=== PATIENT | female | born 1980 | race Caucasian/White ===

== ENCOUNTER 2016-10-29 18:17 | Emergency (ER) | payer OTHER ==
[~2016-10-29] VITALS: Ht 162.6 cm; Wt 79.2 kg
[~2016-10-29 18:17] MED LIST: AUG875 PO; FER325 PO; KETO10TA PO; OMEP40CA6 PO
[2016-10-29 18:31] VITALS: Ht 162.6 cm; Wt 79.2 kg
[2016-10-29] MEDS ORDERED: SOD CHLORIDE 0.9% 1,000 ML IV STA (20:02)
[2016-10-29 20:41] LABS: ADD UMIC YES; URINE BILIRUBIN (Dip) NEGATIVE (NEGATIVE); URINE BLOOD (Dip) 3+ (NEGATIVE); URINE GLUCOSE (Dip) NEGATIVE (NEGATIVE); URINE KETONES (Dip) 40 (NEGATIVE); URINE LEUKOCYTE ESTERASE (Dip) TRACE (NEGATIVE); URINE NITRITE (Dip) NEGATIVE (NEGATIVE); URINE TOTAL PROTEIN (Dip) 4+ (NEGATIVE); URINE UROBILINOGEN (Dip) 1.0 E.U./dL (0.1-1.0)
[2016-10-29 20:45] LABS: URINE COLOR RED (YELLOW)
[2016-10-29 20:46] LABS: SQUAMOUS EPITHELIAL CELL,UR MODERATE; URINE RBCS >200 /HPF (0)
[2016-10-29 20:55] LABS: ADD SCAN DIFF NO
[2016-10-29 21:02] LABS: BASOPHILS % 0.3 % (0.0-2.0); EOSINOPHILS % 0.1 % (0.0-7.0); HEMATOCRIT 28.7 % (37.0-47.0); HEMOGLOBIN 8.6 g/dl (12.0-16.0); LYMPHOCYTES # 1.7 10^3/ul (0.8-2.9); LYMPHOCYTES % 11.7 % (15.0-51.0); MEAN CORPUSCULAR HEMOGLOBIN 22.1 pg (29.0-33.0); MEAN CORPUSCULAR VOLUME 73.6 fl (82.0-101.0); MEAN PLATELET VOLUME 10.6 fl (7.4-10.4); MONOCYTE # 0.5 10^3/ul (0.3-0.9); MONOCYTES % 3.1 % (0.0-11.0); NEUTROPHIL # 12.3 10^3/ul (1.6-7.5); NEUTROPHILS % 84.4 % (39.0-77.0); PLATELET COUNT 372 10^3/UL (140-415); RED CELL DISTRIBUTION WIDTH 16.4 % (11.5-14.5); WHITE BLOOD COUNT 14.6 10^3/ul (4.8-10.8)
--- NOTE | 2016-10-29 21:30 | RADRPT ---
AMENDMENT: 10/29/2016 9:48:22 PM David Pike telephone conversation takes place with the patient's emergency room Health Care provider, Gela corrales, at 21:46 and additional history is made available in that the patient has had a positive test and has witnessed products of conception passing from her vagina. Therefore, the ex amination is consistent with a recent miscarriage, the endometrium heterogeneity related to small re tained blood clots as there is no hypervascular blood flow on Doppler interrogation to suggest retai buzz products of conception. PROCEDURE: US Pelvis. CLINICAL INDICATION: Vaginal bleeding TECHNIQUE: Multiple sonographic images of the pelvis were obtained utilizing a transabdominal and endovaginal technique. The images were reviewed on a PACS workstation. COMPARISON: None available FINDINGS: Uterus: Diffusely enlarged but normal in contour no evidence of masses. Size is estimated at 16.8 x 9.5 x 7.2 cm. Cervix: No abnormalities of significance are seen. Endometrium: Heterogeneous in echotexture, prominent thickness; 12 mm. No increased vascularity on Doppler interrogation is present. Findings may be related to the patients phase of menstruation. Right ovary / adnexa: The ovary is not visualized. There is no evidence of adnexal mass. Left ovary/adnexa: Normal in size estimated at 2.8 x 1.7 x 1.7 cm. No evidence for solid masses, no rmal blood flow on Doppler interrogation. Cul-de-sac: No evidence of free fluid. RPTAT:HJJR IMPRESSION: 1. Enlarged uterus without evidence of myometrial mass. 2. Heterogeneous echotexture to the endometrium which is measured at 12 mm but has no increased Dop pler blood flow, findings likely related to the patients phase of menstruation given her provided ag e of 36 years. Less likely possibilities include submucosal leiomyoma and endometrial polyp. 3. Sonographically normal left ovary; nonvisualization of the right ovary. Physician Magno Date Time Electronically viewed and signed by Physician Magno on 10/29/2016 21:48 /
--- NOTE | 2016-10-29 23:28 | RADRPT ---
PROCEDURE: US Pelvis. CLINICAL INDICATION: Positive with vaginal bleeding. Follow-up evaluation for retained products of conception. TECHNIQUE: Multiple sonographic images of the pelvis were obtained utilizing a transabdominal tech nique. The images were reviewed on a PACS workstation. COMPARISON: 10/29/2016 at 2037 hours FINDINGS: Uterus: Diffusely enlarged likely related to the recently gravid stable without evidence of myometri al mass. Size estimated at 810.2 x 6.6 cm. Cervix: Echogenic material is better visualized within the endocervical canal and the thickness ruthie suring 4 cm but there is no associated increased blood flow on Doppler interrogation, findings felipe tible with blood clots and not retained products of conception. Endometrium: Thickness measured at 13.3 mm with normal blood flow on Doppler interrogation and no e vidence of retained products of conception, slightly heterogeneous in echotexture likely reflects bl ood clots given the provided history.. Right ovary / adnexa: The ovary is not visualized. There is no evidence of adnexal mass. Left ovary/adnexa: The ovary is not visualized. There is no evidence of adnexal mass. Cul-de-sac: No evidence of free fluid. RPTAT:HJJR IMPRESSION: 1. Echogenic material within the endocervical canal does not have increased blood flow on Doppler i nterrogation, findings consistent with blood clots and not retained products of conception. 2. Stable mildly thickened heterogeneous endometrium without hypervascular blood flow on Doppler int errogation consistent with blood clots with no evidence of retained products of conception. 3. Mildly enlarged uterus compatible with the recently gravid state. Physician Magno Date Time Electronically viewed and signed by Physician Magno on 10/29/2016 23:27 /
[2016-10-30] MEDS ORDERED: MISOPROSTOL 200 MCG TAB PO STA (00:49)
--- NOTE | 2016-10-30 00:59 | EN ---
Date/Time of Note Date/Time of Note DATE: 10/30/16 TIME: 00:53 ER Progress Note 36 yo P0010 @ unknown gestation pesents to ER w pos preg test and vaginal bleeding. She had a gastric sleeve one year ago and did not know she was POB- SAB x 1 10 yrs ago PGYN- irreg menses PMH- obesity PSH- gastric sleeve Meds- none NKDA PE: 98.3, 124, 172/90 Abdomen- n/t SVE: fetus and placenta in vagina; removed w forceps and sent to pathology Cervix appears slightly dilated A/P: s/p complete SAB; from size of POC, fetus was likely 14-15 wks patient to have repeat sono to r/o retained POC cytotec to be given rectally patient is anemic; advised to take iron TID f/u w her [employer] provider SHERLY BUSTOS MD Oct 30, 2016 00:59
--- NOTE | 2016-10-30 01:17 | RADRPT ---
PROCEDURE: US Pelvis. CLINICAL INDICATION: Blood clots. Miscarriage TECHNIQUE: Multiple sonographic images of the pelvis were obtained utilizing a transabdominal tech nique. The images were reviewed on a PACS workstation. COMPARISON: Two prior studies on 10/29/2016 FINDINGS: Uterus: Incompletely visualized but to diffusely enlarged Cervix: Previously seen echogenic material within the endocervical canal is no longer visualized. Endometrium: Thickness no measured at 11.9 mm. Normal blood flow on Doppler interrogation. Right ovary / adnexa: The ovary is not visualized. There is no evidence of adnexal mass. Left ovary/adnexa: The ovary is not visualized. There is no evidence of adnexal mass. Cul-de-sac: No evidence of free fluid. RPTAT:HJJR IMPRESSION: 1. Limited transabdominal pelvic ultrasound demonstrates interval expulsion or evacuation of the blo od clot in the endocervical canal seen on the more recent exam of 10/29/2016. 2. No evidence of retained products of conception. 3. Nonvisualization of the ovaries. Physician Magno Date Time Electronically viewed and signed by Physician Magno on 10/30/2016 01:17 /
[2016-10-30] MEDS ORDERED: FER325 PO (01:30)
[2016-10-30] MEDS ORDERED: HYDR-906 PO (01:30)
[2016-10-30] MEDS ORDERED: DOCU-144 PO (01:30)
[2016-10-30] MEDS ORDERED: ONDANSETRON (ODT) 4 MG TAB ODT STA (02:02)
[2016-10-30] MEDS ORDERED: HYDROCODONE/APAP (5/325) TAB PO STA (02:02)
--- NOTE | 2016-10-30 02:02 | ERD ---
ER Documentation Chief Complaint Date/Time DATE: 10/30/16 TIME: 02:02 Chief Complaint 4 weeks , vag bleeding today HPI 36-year-old female A1 with history of gastric sleeve one year ago and iron deficient anemia presenting to the emergency department complaining of passing a blood clot and significant vaginal bleeding and pelvic pain since 3 PM today. Patient states that she did not know she was however she feels like she passed a fetus and miscarried at 3 PM today. Patient believes her last menstrual period was 1 month ago on September 21 however it lasted 2 days. Patient states that she usually gets her menstrual period but around that time every month, she felt like she did not miss a period. Patient denies any dysuria, nausea, vomiting, diarrhea. Patient states that she uses one pad every half hour however it has slowed down since the past 2 hours. ROS All systems reviewed and are negative except as per history of present illness. Medications Home Meds Active Scripts Docusate Sodium* (Colace*) 100 Mg Capsule, 100 MG PO BID, #60 CAP Prov:CURT RODRIGUEZ PA-C 10/30/16 Ferrous Sulfate* (Ferrous Sulfate*) 325 Mg Tabec, 325 MG PO TID, #60 TAB Prov:CURT RODRIGUEZ PA-C 10/30/16 Hydrocodone/Acetaminophen (Venice 5-325 Tablet) 1 Each Tablet, 1 EACH PO Q4 Y for PAIN, #20 TAB Prov:CURT RODRIGUEZ PA-C 10/30/16 Ferrous Sulfate* (Ferrous Sulfate*) 325 Mg Tabec, 325 MG PO BID for 30 Days Prov:DONYA SALVADOR NP 05/06/15 Amoxicillin-Clavulanate K* (Augmentin*) 875 Mg Tab, 875 MG PO BID for 14 Days, TAB Prov:DONYA SALVADOR NP 05/06/15 Reported Medications Ketorolac Tromethamine* (Ketorolac Tromethamine*) 10 Mg Tablet, PO Q6H Y for PAIN, TAB 04/29/15 Omeprazole* (Omeprazole*) 40 Mg Capsule.dr, 40 MG PO DAILY, CAP 04/29/15 Allergies Allergies: Coded Allergies: No Known Drug Allergy (Verified Allergy, Mild, 04/29/15) PMhx/Soc History of Surgery: Yes (Surgical sleeve 04/2015) Anesthesia Reaction: No Hx Neurological Disorder: No Hx Respiratory Disorders: No Hx Cardiac Disorders: No Hx Psychiatric Problems: No Hx Miscellaneous Medical Probl: No Hx Alcohol Use: Yes (Socially ) Hx Substance Use: No Hx Tobacco Use: No Physical Exam Vitals Vital Signs Date Time Temp Pulse Resp B/P Pulse Ox O2 Delivery O2 Flow Rate FiO2 10/29/16 18:31 98.3 124 20 172/90 100 Physical Exam GENERAL: well-developed/well-nourished, in no apparent distress, non-toxic appearing HENT: NC/AT EYES: Conjunctiva normal NECK: Supple, no lymphadenopathy PULM: CTA bilaterally, no rales, rhonchi, or wheezing heard CV: Normal S1S2, RRR, good capillary refill GI: Soft, non-distended, tender to palpation in Normal bowel sounds, no masses or organomegaly felt on exam No gross peritonitis, no bruits Negative Rosvings, negative Smith, negative McBurney's point, negative CVAT : PELVIC EXAM: 8cm x8cm mass seen with a cord and blood clots/vaginal bleeding BIMANUAL EXAM: tender in vaginal exam, no adnexal masses felt BACK: No midline tenderness, no masses EXT: No clubbing, cyanosis, or edema NEURO: Alert and Orientated, gait normal SKIN: Intact, normal turgor PSYCH: Normal mood and mentation Result Diagram: 10/29/162019 Results 24 hrs Laboratory Tests Test 10/29/16 20:13 10/29/16 20:20 Urine Bilirubin NEGATIVE Urine Clarity BLOODY Urine Color RED Urine Glucose NEGATIVE% Urine Hemoglobin 3+ Urine Ketones 40 Urine Leukocyte Esterase TRACE Urine Microscopic RBC >200/HPF Urine Microscopic WBC 0-2/HPF Urine Nitrite NEGATIVE Urine Specific [place] >=1.030 Urine Squamous Epithelial Cells MODERATE Urine Total Protein 4+ Urine Urobilinogen 1.0 E.U./dL Urine pH 6.0 Basophils # 0.010^3/ul Basophils % 0.3% Beta HCG, Quantitative 97463.0mIU/ml Eosinophils # 0.010^3/ul Eosinophils % 0.1% Hematocrit 28.7% Hemoglobin 8.6g/dl Lymphocytes # 1.710^3/ul Lymphocytes % 11.7% Mean Corpuscular Hemoglobin 22.1pg Mean Corpuscular Hemoglobin Concent 30.0g/dl Mean Corpuscular Volume 73.6fl Mean Platelet Volume 10.6fl Monocytes # 0.510^3/ul Monocytes % 3.1% Neutrophils # 12.310^3/ul Neutrophils % 84.4% Nucleated Red Blood Cells # 0.010^3/ul Nucleated Red Blood Cells % 0.0/100WBC Platelet Count 65157^3/UL Red Blood Count 3.9010^6/ul Red Cell Distribution Width 16.4% White Blood Count 14.610^3/ul Current Medications Medications (Trade) Dose Ordered Sig/Darrell Route PRN Reason Start Time Stop Time Status Last Admin Dose Admin Sodium Chloride (NS) 1,000 ml @ 1,000 mls/hr Q1H STAT IV 10/29/16 20:02 10/29/16 21:01 DC 10/29/16 20:35 Misoprostol (Cytotec) 1,000 mcg ONCE STAT PO 10/30/16 00:49 10/30/16 00:51 DC Procedures/MDM 36-year-old female A1 with history of gastric sleeve one year ago and iron deficient anemia presenting to the emergency department complaining of passing a blood clot and significant vaginal bleeding and pelvic pain since 3 PM today. Patient states that she did not know she was however she feels like she passed a fetus and miscarried at 3 PM today. Patient believes her last menstrual period was 1 month ago on September 21 however it lasted 2 days. Patient states that she usually gets her menstrual period but around that time every month, she felt like she did not miss a period. Patient states that she uses one pad every half hour however it has slowed down since the past 2 hours. Lab work was drawn. CBC showed a white count of 14.6 likely due to a stress reaction patient's Hgb 8.6 and Hct 28.7 [place] [address] UA did not show any evidence of urinary tract infection First OB US results read by radiologist Tashi: 1. Enlarged uterus without evidence of myometrial mass. 2. Heterogeneous echotexture to the endometrium which is measured at 12 mm but has no increased Doppler blood flow, findings likely related to the patients phase of menstruation given her provided age of 36 years. Less likely possibilities include submucosal leiomyoma and endometrial polyp. 3. Sonographically normal left ovary; nonvisualization of the right ovary. I have consulted the radiologist Dr. Akins regarding this patient stating that patient had a positive hCG level with possible products of conception and Dr. Akins added an addendum: A telephone conversation takes place with the patient's emergency room Health Care provider, Curt Rodriguez, at 21:46 and additional history is made available in that the patient has had a positive test and has witnessed products of conception passing from her vagina. Therefore, the examination is consistent with a recent miscarriage, the endometrium heterogeneity related to small retained blood clots as there is no hypervascular blood flow on Doppler interrogation to suggest retained products of conception. A second ultrasound was done and radiologist stated no evidence of retained products. I have consulted my supervising physician and OB laborist regarding this patient stating there is possible retained products of conception. Dr. Finley came to evaluate the patient and removed the products of conception from the vaginal canal. A third ultrasound was done and radiologist stated no retained products. Dr. Finley advised to give patient 1000 g of Cytotec rectally. I have inserted the Cytotec in the patient's rectum. This specimen has been sent out to pathology. It appears that patient has a completed Patient is O negative, RhoGam was administered. I have given patient a lengthy discussion regarding her hemoglobin and to be compliant with her iron supplements. and I have discussed that she will continue to bleed for the next couple weeks, strict precautions were given to the patient that if she has any dizziness or any symptoms to return to the ER. Patient was given prescription for Venice, ferrous sulfate and Colace. She is to follow-up with her REGISTERED PHARMACIST and return to the ER for any worsening signs or symptoms. Departure Diagnosis: Primary Impression: Complete Additional Impression: Microcytic anemia Condition: Fair Patient Instructions: Anemia, Iron Deficiency (Adult), Miscarriage, Spontaneous (Completed) Referrals: REGISTERED PHARMACIST [place] [address] [facility] [address] [place] [id number] OFFICE FAX FRIDA GRADY [address] [place] [address] [address] TONY BRUTUS [address] [place] [address] ([address], [facility] [address] [address] [facility], [address] [place] [address] MILLIE GARCIAROOZ [address] [place] [address] [facility] [address] [place] [address] [facility], [facility] [address] - ADONAY BENSONA [address], [facility] [address] [address] BAKER, GISEL [address] [facility]. [address], [place] [address] [address] MEJIA, [facility] [address] [place] [address] Additional Instructions: FOLLOW UP WITH YOUR PRIMARY CARE PHYSICIAN TOMORROW.Return to this facility if you are not improving as expected. Take all medicines as directed. Return to this facility if you are not improving as expected. CURT RODRIGUEZ PA-C Oct 30, 2016 02:02
[2016-10-30 04:07] VITALS: BP 115/67; PULSE 73; RESP 16; TEMP 99
== END 2016-10-30 04:18 | disposition home or self-care (01) ==
LOC: FTE 18:17
DX: O03.9 Complete or unspecified spontaneous abortion without complication (principal); O99.011 Anemia complicating pregnancy, first trimester; D50.9 Iron deficiency anemia, unspecified; R10.2 Pelvic and perineal pain
CPT/HCPCS: 36415; 76801; 76817; 81001; 84702; 85025; 86900; 86901; J2790; J7030; Z7502; Z7610; 81003